=== PATIENT | female | born 1950 | race Caucasian/White ===

== ENCOUNTER 2018-11-20 15:28 | Inpatient (IN) | payer MEDICARE ==
[~2018-11-20 15:28] MED LIST: ISOVUE-370 76%-LOCM 1 ML ONE
[2018-11-20 16:10] LABS: #Basophils 0.1 thou/uL (0.0-0.2); #Eosinphils 0.1 thou/uL (0.0-0.7); #Lymphocytes 0.8 thou/uL (1.20-3.40); #Monocytes 1.1 thou/uL (0.11-0.59); #Neutrophils 7.8 thou/uL (1.40-6.50); %Eosinophils 0.7 % (0.0-10.0); %Monocytes 11.1 % (0.0-10.0); %Neutrophils 79.2 % (42.0-75.0); Hemoglobin 15.8 g/dL (12.0-16.0); Mean Corpuscular HGB CONC 33.3 g/dL (32.0-36.0); Mean Platelet Volume 6.1 fL (7.4-10.4); Platelet Count 376 thou/uL (130-400); RBC Distribution Width 12.8 % (11.5-14.5); Red Blood Cell (RBC) Count 4.79 mill/uL (4.20-5.40); White Blood Cell (WBC) Count 9.8 thou/uL (4.8-10.8)
--- NOTE | 2018-11-20 16:15 | CT ---
BRAIN CT WITHOUT IV CONTRAST: HISTORY: Stroke alert, altered mental status. FINDINGS: No focal mass or midline shift. No intra- or extraaxial hemorrhage. Sinuses and mastoids are clear of acute process. IMPRESSION: No significant acute intracranial process. No mass or bleed. Findings are discussed with Dr. Yo at 4:06 p.m. CODE CR POS: [facility]
[2018-11-20 16:16] LABS: INR-International Normal Ratio 0.8; Prothrombin Time 11.4 SEC (12.0-14.7)
[2018-11-20 16:24] LABS: PTT 22.7 SEC (22.9-36.1)
[2018-11-20 16:25] LABS: ALT (SGPT) 30 U/L (8-55); AST (SGOT) 18 U/L (5-34); Albumin 4.4 g/dL (3.4-4.8); Alkaline Phosphatase 97 U/L (40-150); Anion Gap 16 mmol/L (10-20); BUN (Urea Nitrogen) 15 mg/dL (9.8-20.1); Bilirubin, Total 0.4 mg/dL (0.2-1.2); CK (CPK) 61 U/L (29-168); Calc. Creatinine Clearance 0 mL/min (70-130); Calcium 10.1 mg/dL (7.8-10.44); Carbon Dioxide 25 mmol/L (23-31); Chloride 98 mmol/L (98-107); Estimated GFR-MDRD 77; Globulin 3.2 g/dL (2.4-3.5); Glucose 105 mg/dL (80-115); Potassium 3.6 mmol/L (3.5-5.1); Protein, Total 7.6 g/dL (6.0-8.3); Sodium 135 mmol/L (136-145)
--- NOTE | 2018-11-20 16:30 | CT ---
CTA OF THE HEAD UTILIZING IV CONTRAST AND 3D REFORMATTED IMAGING CTA OF THE NECK UTILIZING IV CONTRAST AND 3D REFORMATTED IMAGING 11/20/18 INDICATION: History of stroke alert. Altered mental status. COMPARISON: CT of the brain without contrast dated 11/20/18 performed at 4:03 p.m. FINDINGS: No hemodynamically significant stenosis, occlusion or aneurysmal formation is demonstrated. No area o f abnormal enhancement is seen within the brain. The septum pellucidum and third ventricle are midlin e. The skull and extracranial soft tissues appear within normal limits. No lymphadenopathy is grossly evident. The visualized aspects of the aerodigestive tract appear within normal limits. The upper me diastinum is within normal limits. No pathologically enlarged lymph nodes are grossly evident. There is a mildly prominent prevascular lymph node measuring 7 mm. A small amount of fluid is seen within t he superior pericardial recess. No definite acute osseous abnormality is evident. IMPRESSION: 1. No hemodynamically significant stenosis, occlusion or aneurysmal formation demonstrated. 2. Findings called to Dr. Yo at 4:20 p.m. on 11/20/18. Code CR POS: [facility]
[2018-11-20 16:57] LABS: CKMB 2.7 ng/mL (0-6.6)
[2018-11-20 17:11] LABS: Bilirubin Negative (Negative); Blood, Urine Negative (Negative); Clarity CLEAR (Clear); Glucose, Urine (Dipstick) Negative (Negative); Leukocyte Negative (Negative); Nitrite Negative (Negative); Protein, Urine (Dipstick) Negative (Neg-Trace); Urobilinogen 0.2 mg/dL (0.2-1.0)
[2018-11-20 17:25] LABS: Specific Gravity, Urine 1.054 (1.002-1.036)
[2018-11-20] MEDS ORDERED: Aspirin 81 mg Enteric Coated Tablet ONE (17:55)
[2018-11-20] MEDS ORDERED: Ondansetron ODT 4 MG TAB PO PRN (18:44)
[2018-11-20] MEDS ORDERED: Ondansetron PF 4 MG/2 ML Vial IVP PRN (18:44)
[2018-11-20] MEDS ORDERED: hydrALAZINE 20 MG/ML VIAL SLOW IVP PRN (18:44)
[2018-11-20] MEDS ORDERED: Acetaminophen 325 MG TAB PO PRN (18:44)
[2018-11-20] MEDS ORDERED: Labetalol HCl 100 MG/20 ML VIAL SLOW IVP PRN (18:44)
[2018-11-20] MEDS ORDERED: Lisinopril 2.5 MG TAB PO SCH (19:00)
[2018-11-20 19:20] LABS: Troponin I 0.656 ng/mL (< 0.028)
[2018-11-20] MEDS ORDERED: Ondansetron PF 4 MG/2 ML Vial ONE (21:09)
[2018-11-20 22:07] LABS: Troponin I 1.102 ng/mL (< 0.028)
[2018-11-20] MEDS ORDERED: TICAGRELOR 90 MG TABLET PO SCH (22:17)
[2018-11-20] MEDS: Enoxaparin Sodium 60 MG/0.6 ML SYRINGE SC SCH (23:00)
[2018-11-20] MEDS: Atorvastatin Calcium 40 MG TAB PO SCH (23:01)
[2018-11-20 23:52] VITALS: BMI 22.2
--- NOTE | 2018-11-21 01:26 | HP ---
PRIMARY CARE PHYSICIAN: Out of town physician in [place], [place]. CHIEF COMPLAINT: Altered mental status. HISTORY OF PRESENT ILLNESS: This is a pleasant 68-year-old female with past medical history of hyperlipidemia, however, not on any home medications at that time, reports to [facility] Emergency Department due to an altered mental status that started earlier today. She is in town for a family wedding, she is from [place]. She was noted by family to have acute confusion, not able to remember the groom's name. She was also having trouble packing her suitcase and having trouble answering questions per family. She had denied any headache, blurred vision, or dizziness. She had denied any chest pain, shortness of breath, or abdominal pain. She had denied any recent illness, numbness, or tingling. She had also denied any weakness, numbness, or tingling. During her initial workup, she was found to be hypertensive with a blood pressure of 179/118 with a pulse of 111, this was rechecked and found to be slightly improved to 155/104 with a pulse of 109. She underwent a brain CT, which showed no significant acute intracranial process, mass, or bleed. CTA head and neck showed no hemodynamically significant stenosis, occlusion, or aneurysm formation demonstrated. Her lab work showed slightly low sodium at 135 and troponin indeterminate at 0.073. Urinalysis was unremarkable, however, did show a specific gravity of 1.054. It was determined the patient be admitted under observation for stroke workup and possible cause of her acute encephalopathy. REVIEW OF SYSTEMS: All other systems reviewed and found to be negative unless mentioned in the HPI. PAST MEDICAL HISTORY: Hyperlipidemia. PAST SURGICAL HISTORY: Significant for breast implants and left knee surgery. PSYCHIATRIC HISTORY: None. SOCIAL HISTORY: Denies any alcohol, tobacco, or illicit drug use. KNOWN ALLERGIES: No known drug allergies. CURRENT HOME MEDICATIONS: None. PHYSICAL EXAMINATION: VITAL SIGNS: Blood pressure 155/104, pulse 109, respirations 16, temperature 98.4 degrees Fahrenheit, and O2 saturations 96% on room air. GENERAL: The patient is awake, alert, and oriented x2, in no acute distress noted. HEENT: Atraumatic and normocephalic. Pupils are round and reactive to light. Extraocular muscles are intact. Moist mucous membranes noted. Oropharynx is clear without exudates or erythema. NECK: Soft and supple. No JVD. Trachea midline. CARDIOVASCULAR: Positive S1 and S2. Regular rate and rhythm. No murmur auscultated. RESPIRATORY: Clear to auscultation bilaterally. No wheezes, rales, or rhonchi. ABDOMEN: Soft, nontender. Bowel sounds are present. No rebound. No rigidity. MUSCULOSKELETAL: Strength 5+ bilaterally in upper and lower extremities. No edema noted. Moves all extremities equal. NEUROLOGIC: Cranial nerves 2 through 12 grossly intact. No focal deficits noted. Speech intact and normal. Gait not assessed. SKIN: Warm, dry, and intact. No rashes, lesions, or ulcerations noted. PSYCHIATRIC: Good mood and affect. LABORATORY DATA: WBC 9.8, RBC 4.79, hemoglobin 15.8, platelet 376. Sodium 135, potassium 3.6, anion gap 16, BUN 15, creatinine 0.75, estimated GFR 77, glucose 105, calcium 10.1. AST 18, ALT 30. CK-MB 2.7. Troponin 0.0273. Urinalysis showed a specific gravity of 1.054, otherwise unremarkable. DIAGNOSTIC IMAGING STUDIES: CT brain without contrast showed no significant acute intracranial process, mass, or bleed. CTA head and neck showed no hemodynamically significant stenosis, occlusion, or aneurysm noted. ASSESSMENT AND PLAN: 1. Acute encephalopathy, unknown etiology at this time; however, this is likely secondary to elevated blood pressure. MRI ordered along with echocardiogram. She will be started on low-dose aspirin and statin therapy. Await further workup. 2. Hypertension. We will place the patient on low-dose SANTI inhibitor at this time. Monitor vital signs closely. Add IV hydralazine and IV labetalol as needed for elevated blood pressures with systolic blood pressure greater than 220. 3. History of hyperlipidemia. Check lipid panel in a.m. and place the patient on statin therapy. 4. Indeterminate troponin. First troponin found to be 0.073. Await second and third. Further workup pending, pending rechecks. If troponin is found to be trending up, we will place consult for Cardiology Services at that time. 5. Deep venous thrombosis and gastrointestinal prophylaxis. 6. Code status, full code. 7. Surrogate decision maker is her , Wolfgang Yost. DISPOSITION: Pending further workup and clinical findings. Job ID: [id number]
[2018-11-21 07:29] LABS: #Eosinphils 0.1 thou/uL (0.0-0.7); #Lymphocytes 0.7 thou/uL (1.20-3.40); #Monocytes 0.9 thou/uL (0.11-0.59); #Neutrophils 6.5 thou/uL (1.40-6.50); %Basophils 0.2 % (0.0-1.0); %Eosinophils 0.8 % (0.0-10.0); %Lymphocytes 8.9 % (21.0-51.0); %Monocytes 10.4 % (0.0-10.0); %Neutrophils 79.6 % (42.0-75.0); Hemoglobin 13.8 g/dL (12.0-16.0); Mean Corpuscular HGB CONC 33.8 g/dL (32.0-36.0); Mean Corpuscular Hemoglobin 32.8 pg (27.0-31.0); Mean Corpuscular Volume 96.8 fL (78.0-98.0); Mean Platelet Volume 6.2 fL (7.4-10.4); Platelet Count 298 thou/uL (130-400); RBC Distribution Width 12.5 % (11.5-14.5); Red Blood Cell (RBC) Count 4.23 mill/uL (4.20-5.40); White Blood Cell (WBC) Count 8.2 thou/uL (4.8-10.8)
[2018-11-21 07:48] LABS: Anion Gap 11 mmol/L (10-20); BUN (Urea Nitrogen) 13 mg/dL (9.8-20.1); Calc. Creatinine Clearance 81 mL/min (70-130); Calcium 8.4 mg/dL (7.8-10.44); Carbon Dioxide 23 mmol/L (23-31); Cardiac Risk 3.9 (Less than 4.5); Chloride 98 mmol/L (98-107); Cholesterol 258 mg/dl (< 200 Desired); Estimated GFR-MDRD Greater than 90; Glucose 110 mg/dL (80-115); HDL Cholesterol 67 mg/dL (>60 Neg Risk); LDL Cholesterol, Calculated 155 mg/dL; Potassium 3.5 mmol/L (3.5-5.1); Sodium 128 mmol/L (136-145); Triglycerides 178 mg/dL (Less than 150)
[2018-11-21] MEDS ORDERED: Enoxaparin Sodium 40 MG/0.4 ML SYRINGE SC SCH (09:00)
[2018-11-21] MEDS ORDERED: TICAGRELOR 90 MG TABLET PO SCH (09:00)
[2018-11-21] MEDS ORDERED: ALENDRONATE SODIUM 5 MG PO SCH (09:00)
[2018-11-21] MEDS ORDERED: Prevnar 13-Val Conj/PF 0.5 ML SYRINGE IM ONE ×2 (09:00→11:00)
[2018-11-21] MEDS: Aspirin 81 mg Enteric Coated Tablet PO SCH (10:18)
[2018-11-21] MEDS: Lisinopril 2.5 MG TAB PO SCH (10:20)
[2018-11-21] MEDS: Enoxaparin Sodium 60 MG/0.6 ML SYRINGE SC SCH ×2 (10:22→11:50)
[2018-11-21 10:53] LABS: Critical Call Chem Troponin I RESULT DECREASING; Troponin I 0.584 ng/mL (< 0.028)
--- NOTE | 2018-11-21 10:59 | MRI ---
MRI BRAIN WITHOUT CONTRAST: HISTORY: TIA. Altered mental status. COMPARISON: Exam from the previous day. FINDINGS: No restricted diffusion is seen. No evidence of infarct, hemorrhage, midline shift, or abnormal extr aaxial fluid collections are noted. Multiple foci of T2 prolongation in the periventricular white ma tter are consistent with chronic small vessel ischemic disease. The ventricular size is appropriate, and the basilar cisterns are patent. The visualized paranasal sinuses and mastoid air cells are wel l aerated. IMPRESSION: No evidence of acute intracranial process. POS: C
[2018-11-21] MEDS ORDERED: Iopamidol 370 76% 50 ML VIAL FS ONE (11:21)
[2018-11-21] MEDS ORDERED: Iopamidol 370 76% 100 ML VIAL ONE (11:21)
[2018-11-21] MEDS ORDERED: Communication Order-Pharmacy FS SCH (11:45)
--- NOTE | 2018-11-21 13:03 | CON ---
DATE OF CONSULTATION: 11/21/2018 INDICATION FOR CONSULTATION: A 68-year-old female with mental status changes and abnormal cardiac enzymes. HISTORY OF PRESENT ILLNESS: This very pleasant 68-year-old female was visiting from [place]. Her stepdaughter is getting . She is from [place]. She has had no previous cardiac history, but she became very confused and the family brought her to the emergency room. CT of the brain does not show any significant abnormalities. She did have an echocardiogram today which shows ejection fraction of 20% to 25%. The anterior wall septum and apex appeared to be akinetic. She did have trace mitral and tricuspid valve regurgitation. She has had no previous cardiac history that she is aware of. She is able to exercise. She has had the cardiac enzymes continue to creep upwards slightly. She is asymptomatic. It peaked at 1.1. The troponin I when she arrived, it was 0.073, increased up to 1.1, is now decreased back down to 0.58. She does have hypercholesterolemia. LDL level is 155. She does not have any significant other past medical history. She denies any significant hypertension. She exercises without symptoms. PAST MEDICAL HISTORY: Significant for just hyperlipidemia. She has had breast implants and knee surgery. SOCIAL HISTORY: There is no history of alcohol or tobacco abuse. She is . ALLERGIES: NONE. PRESENT MEDICATIONS: Include medications for cholesterol, osteoporosis, and vitamins. REVIEW OF SYSTEMS: A 12-point review of systems is unremarkable except what was noted in the history of present illness. PHYSICAL EXAMINATION: GENERAL: Reveals a well-developed, well-nourished female, who is in no acute distress. She is alert and oriented. VITAL SIGNS: Her vital signs are stable. Her blood pressure is 106/68. She is afebrile. Her heart rate is in the 80s and shows a sinus rhythm, respiratory rate about 16, O2 saturation 96%. HEENT: Shows head to be normocephalic and atraumatic. Carotid pulses are present. I did not hear any bruits. CHEST: Clear to auscultation without any rales, rhonchi, or wheezing. CARDIOVASCULAR: Reveals a regular rate and rhythm. Normal S1, S2. There is no S3 or S4. I cannot hear any significant murmurs, heaves, thrills, bruits, or rubs. ABDOMINAL: Soft and nontender. Positive bowel sounds are present. EXTREMITIES: Show no clubbing, cyanosis, or edema. Pedal pulses are present. Radial pulses present. NEUROLOGIC: The patient appears to be intact without any gross focal motor deficits noted at this time. Her mentation appears to be back to normal. LABORATORY DATA: Her laboratory data is abnormal for the cardiac enzymes as mentioned above. Her creatinine is 0.75. No evidence of urinary tract infections. Hemoglobin 15.8. CT scan was unremarkable. Echocardiogram shows severe decrease in left ventricular systolic function. At this time, I explained to her since she does not have any indication of having any previous cardiac history, it would most likely be prudent to evaluate her coronary status at this time since she does have an EKG which is abnormal. 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 She has an incomplete left bundle branch block, but there is decreased R-wave progression in V1 through V4 with minimal R-waves. No ST-segment elevation was noted. IMPRESSION: 1. Cardiomyopathy of uncertain etiology, but may be due to old anterior myocardial infarction, which was undiagnosed and may have been a silent myocardial infarction. We will schedule her for cardiac catheterization. We will have further discussion depending on the results of the cardiac catheterization. She also would become a candidate for a LifeVest or an AICD implant. 2. Hypercholesterolemia. She has been placed on atorvastatin and would continue this. She also was given a dose of Lovenox last evening. 3. Mental status changes of uncertain etiology, it may be due to hypoperfusion due to decreasing cardiac output or she may have had small emboli due to the also the decrease in ejection fraction. After the cardiac catheterization is completed, if there is no significant intervention needs to be undertaken, it may not be a bad idea to place the patient on some type of anticoagulation due to the decrease in left ventricular systolic function. Further recommendations will depend on the results of the cardiac catheterization. I did explain to her the procedure, the risks to include bleeding, infection, possible myocardial infarction, CVA, renal insufficiency, allergic contrast reaction, and even the possibility of . She understands and agrees to proceed. We will plan for cardiac catheterization later today. Job ID: [id number]
[2018-11-21] MEDS ORDERED: Verapamil 5 MG/2 ML VIAL ONE (13:31)
[2018-11-21] MEDS ORDERED: Heparin 10,000 UNITS/1 ML VIAL ONE (13:31)
[2018-11-21] MEDS ORDERED: Nitroglycerin 100MG/250ML BOT 250 ML ONE (13:31)
--- NOTE | 2018-11-21 14:14 | PDOC.PN ---
- Subjective Encounter Start Date: 11/21/18 Encounter Start Time: 14:12 (late entry) Subjective: feels better.no more grogginess -: no chest pain or SOB -: significant FH of CAD in Dad's side. Mom had stroke - Objective Resuscitation Status - Order Detail: 11/20/18 18:44 Resuscitation Status Routine Co-Sign Provider: Resuscitation Status: FULL: Full Resuscitation MAR Reviewed: Yes Vital Signs & Weight: Vital Signs (12 hours) Temp Pulse Resp BP Pulse Ox 11/21/18 11:39 97.8 F 84 16 118/83 98 11/21/18 10:20 81 11/21/18 07:45 98.5 F 81 16 106/68 96 11/21/18 04:00 98.4 F 87 18 109/75 96 Weight Weight 117 lb 14.4 oz I&O: 11/20/18 11/21/18 11/22/18 06:59 06:59 06:59 Intake Total 520 Balance 520 Result Diagrams: 11/21/18 07:03 11/21/18 07:03 Additional Labs: Accuchecks 11/20/18 15:43 POC Glucose 110 Laboratory Tests 11/20/18 11/20/18 11/20/18 15:45 18:41 21:29 Troponin I 0.073 H 0.656 H* 1.102 H* Triglycerides Cholesterol LDL Cholesterol, Calc HDL Cholesterol 11/21/18 11/21/18 07:03 10:14 Troponin I 0.584 H* Triglycerides 178 H Cholesterol 258 H LDL Cholesterol, Calc 155 HDL Cholesterol 67 Phys Exam - Physical Examination Constitutional: NAD HEENT: PERRLA, moist MMs, sclera anicteric, oral pharynx no lesions Neck: no nodes, no JVD, supple, full ROM Respiratory: no wheezing, no rales, no rhonchi, clear to auscultation bilateral Cardiovascular: RRR, no significant murmur Gastrointestinal: soft, non-tender, no distention, positive bowel sounds Musculoskeletal: no edema, pulses present Neurological: non-focal, normal sensation, moves all 4 limbs Psychiatric: normal affect, A&O x 3 Skin: no rash Dx/Plan (1) NSTEMI (non-ST elevated myocardial infarction) Code(s): I21.4 - NON-ST ELEVATION (NSTEMI) MYOCARDIAL INFARCTION Status: Acute (2) Hyperlipidemia Code(s): E78.5 - HYPERLIPIDEMIA, UNSPECIFIED Status: Acute (3) HTN (hypertension) Code(s): I10 - ESSENTIAL (PRIMARY) HYPERTENSION Status: Acute - Plan DVT proph w/SCDs cardiac Cath today. -: MRI brain to r/o stroke is negative at this time -: cont ASA,Lovenox,statin,SANTI-I.1 dose Brillinta given last night -: HD stable.add BB if BP stable * . Review of Systems - Review of Systems Constitutional: weakness. negative: fever, chills, sweats, malaise, other ENT: negative: Ear Pain, Ear Discharge, Nose Pain, Nose Discharge, Nose Congestion, Mouth Pain, Mouth Swelling, Throat Pain, Throat Swelling, Other Respiratory: negative: Cough, Dry, Shortness of Breath, Hemoptysis, SOB with Excertion, Pleuritic Pain, Sputum, Wheezing Cardiovascular: negative: chest pain, palpitations, orthopnea, paroxysmal nocturnal dyspnea, edema, light headedness, other Gastrointestinal: negative: Nausea, Vomiting, Abdominal Pain, Diarrhea, Constipation, Melena, Hematochezia, Other Genitourinary: negative: Dysuria, Frequency, Incontinence, Hematuria, Retention , Other Musculoskeletal: negative: Neck Pain, Shoulder Pain, Arm Pain, Back Pain, Hand Pain, Leg Pain, Foot Pain, Other Neurological: negative: Weakness, Numbness, Incoordination, Change in Speech, Confusion, Seizures, Other - Medications/Allergies Allergies/Adverse Reactions: Allergies Allergy/AdvReac Type Severity Reaction Status Date / Time No Known Drug Allergies Allergy Verified 11/20/18 23:19 Medications: Current Medications Acetaminophen (Tylenol) 650 mg PO Q4H PRN PRN Reason: Headache/Fever/Mild Pain (1-3) Last Admin: 11/21/18 02:06 Dose: 650 mg Aspirin (Ecotrin) 81 mg PO DAILY [facility] Last Admin: 11/21/18 10:18 Dose: 81 mg Atorvastatin Calcium (Lipitor) 40 mg PO HS [facility] Last Admin: 11/20/18 23:01 Dose: 40 mg Hydralazine HCl (Apresoline) 10 mg SLOW IVP Q4H PRN PRN Reason: BP > 220/110 Labetalol HCl (Normodyne) 20 mg SLOW IVP Q1H PRN PRN Reason: BP > 220/110 Lisinopril (Zestril) 2.5 mg PO DAILY [facility] Last Admin: 11/21/18 10:20 Dose: Not Given Miscellaneous Information (Communication Order-Pharmacy) 0 each FS ONE [facility] Stop: 11/21/18 23:59 Ondansetron HCl (Zofran Odt) 4 mg PO Q6H PRN PRN Reason: Nausea/Vomiting Ondansetron HCl (Zofran) 4 mg IVP Q6H PRN PRN Reason: Nausea/Vomiting Last Admin: 11/20/18 21:09 Dose: 4 mg Sodium Chloride (Flush - Normal Saline) 10 ml IVF PRN PRN PRN Reason: Saline Flush
[2018-11-21] MEDS ORDERED: DOPamine 400 MG/D5W 250 ML 250 ML ONE (14:34)
[2018-11-21] MEDS ORDERED: Nitroglycerin 0.4 MG TAB (25 Tab Bottle) SL PRN (15:25)
[2018-11-21] MEDS ORDERED: Sodium Chloride 0.9% 200 ML IV PRN (15:25)
[2018-11-21] MEDS ORDERED: Acetaminophen/Codeine 30-300mg Tablet PO PRN ×2 (15:25)
[2018-11-21 17:22] LABS: Anion Gap 13 mmol/L (10-20); BUN (Urea Nitrogen) 11 mg/dL (9.8-20.1); Calc. Creatinine Clearance 71 mL/min (70-130); Calcium 8.2 mg/dL (7.8-10.44); Carbon Dioxide 22 mmol/L (23-31); Chloride 100 mmol/L (98-107); Estimated GFR-MDRD Greater than 90; Glucose 126 mg/dL (80-115); Potassium 3.4 mmol/L (3.5-5.1); Sodium 132 mmol/L (136-145)
[2018-11-21] MEDS: Potassium Chloride 20 MEQ TAB PO SCH (20:18)
[2018-11-21] MEDS: Atorvastatin Calcium 40 MG TAB PO SCH (20:18)
--- NOTE | 2018-11-22 01:27 | CON ---
DATE OF CONSULTATION: 11/21/2018 CONSULTING PHYSICIAN: Dr. Cloud. REASON FOR CONSULTATION: Hyponatremia. REASON FOR ADMISSION: Altered mentation. HISTORY OF PRESENT ILLNESS: A 68-year-old female with history of hyperlipidemia, who came to the hospital with altered mentation and was found to have low sodium. She had a sodium of 135 on admission and dropped to 128. No fever or chills. No nausea or vomiting. She has been drinking fluid. PAST MEDICAL HISTORY: Positive for hyperlipidemia. PAST SURGICAL HISTORY: Breast implants and left knee surgery. HOME MEDICATIONS: Reviewed. ALLERGIES: NO KNOWN DRUG ALLERGIES. SOCIAL HISTORY: No smoking, alcohol, or illicit drugs. FAMILY HISTORY: No history of any kidney disease. REVIEW OF SYSTEMS: CONSTITUTIONAL: Negative for weight loss or gain, ability to conduct usual activities. SKIN: Negative for rash, itching. EYES: Negative for double vision, pain. ENT/MOUTH: Negative for nose bleeding, neck stiffness, pain, tenderness. CARDIOVASCULAR: Negative for palpitations, dyspnea on exertion, orthopnea. RESPIRATORY: Negative for shortness of breath, wheezing, cough, hemoptysis, fever or night sweats. GASTROINTESTINAL: Negative for poor appetite, abdominal pain, heartburn, nausea, vomiting, constipation, or diarrhea. GENITOURINARY: Negative for urgency, frequency, dysuria, nocturia. MUSCULOSKELETAL: Negative for pain, swelling. NEUROLOGIC/PSYCHIATRIC: Negative for anxiety, depression. ALLERGY/IMMUNOLOGIC: Negative for skin rash, bleeding tendency. PHYSICAL EXAMINATION: GENERAL: Reveals a well-build female, in no apparent distress. VITAL SIGNS: Temperature 97.8, pulse 84, respiratory rate 18, and blood pressure 118/83. HEENT: Atraumatic and normocephalic. Oral mucosa is moist. NECK: Supple. CVS: S1 and S2 heard. Regular rate and rhythm. RESPIRATORY: Clear. GI: Abdomen is soft. MUSCULOSKELETAL: 1+ edema. DERMATOLOGIC: No skin rash. NEUROLOGIC: Alert and awake. PSYCHIATRIC: Normal mood and affect LABORATORY DATA: Potassium is 3.4, BUN is 11, and creatinine is 0.6. ASSESSMENT AND PLAN: 1. Hyponatremia. Sodium level is better. Limit fluid intake. 2. Hypokalemia. Replace and monitor. 3. Edema, controlled. 4. Hypertension, stable. 5. We will continue to monitor. Job ID: [id number]
[2018-11-22 06:28] LABS: Anion Gap 12 mmol/L (10-20); BUN (Urea Nitrogen) 10 mg/dL (9.8-20.1); Calc. Creatinine Clearance 74 mL/min (70-130); Calcium 8.8 mg/dL (7.8-10.44); Carbon Dioxide 23 mmol/L (23-31); Chloride 105 mmol/L (98-107); Estimated GFR-MDRD Greater than 90; Glucose 112 mg/dL (80-115); Potassium 4.2 mmol/L (3.5-5.1); Sodium 136 mmol/L (136-145)
[2018-11-22] MEDS: Aspirin 81 mg Enteric Coated Tablet PO SCH (09:26)
[2018-11-22] MEDS: Lisinopril 2.5 MG TAB PO SCH (09:26)
[2018-11-22] MEDS: Carvedilol 3.125 MG TAB PO SCH ×2 (09:26→17:08)
--- NOTE | 2018-11-22 11:35 | PDOC.CTH ---
Cardiology Progress Note - Subjective The pt seen and examined. No cardiac complaints. No overnight events. - Objective Vital Signs Temp Pulse Resp BP BP Pulse Ox 11/22/18 09:26 84 117/73 11/22/18 07:39 98.1 F 84 16 117/73 96 11/22/18 04:00 97.7 F 83 16 109/74 99 11/22/18 03:29 97 11/22/18 00:00 97.8 F 75 16 113/72 97 Weight 117 lb 4.8 oz 11/21/18 11/22/18 11/23/18 06:59 06:59 06:59 Intake Total 520 410 300 Balance 520 410 300 - Labs Result Diagrams: 11/21/18 07:03 11/22/18 05:53 Troponin/CKMB CK-MB (CK-2) 2.7 ng/mL (0-6.6) 11/20/18 15:45 Troponin I 0.584 ng/mL (< 0.028) H* 11/21/18 10:14 - Assessment/Plan 1. Acute on Chronic Systolic HF with EF 25-30% - Normal Coronary arteries; Waiting for LifeVest; On Bblocker, SANTI, and diuretic 2. NSTEMI 2/2 demand ischemia 2/2 Acute on Chronic systolic HF - S/p [facility] on with normal Coronary arteries. 3. AMS possible 2/2 low perfusion due to low EF vs embolism - improved; will start Eliquis 5mg BID and ASA 81mg qd. 4. Hyperlipidemia - On Statin MAR reviewed * Echo on 11/21/2018 showed EF 25-30%, anterior septal and apical akinesis, mild MR and TR. * From Cardiac standpoint, the pt is stable to d/c home when she receives LifeVest. * The pt will f/u with her tram operator in [facility]. Pt. seen and eval. by me. I agree with the A/P by the HEEL SORTER. chest clear. RRR. If this is [place] she may recover. .
[2018-11-22] MEDS ORDERED: Apixaban 5 MG TAB PO SCH ×2 (12:30→13:15)
--- NOTE | 2018-11-22 12:55 | PDOC.PN ---
- Subjective Encounter Start Date: 11/22/18 Encounter Start Time: 12:54 Subjective: feels good,no chest pain or SOB -: daughter at bedside and diagnosis and care plan discussed in detail - Objective Resuscitation Status - Order Detail: 11/20/18 18:44 Resuscitation Status Routine Co-Sign Provider: Resuscitation Status: FULL: Full Resuscitation MAR Reviewed: Yes Vital Signs & Weight: Vital Signs (12 hours) Temp Pulse Pulse Pulse Pulse Resp BP 11/22/18 11:55 97 120 H 145 H 11/22/18 11:35 98 F 87 16 11/22/18 09:26 84 117/73 11/22/18 07:39 98.1 F 84 16 11/22/18 04:00 97.7 F 83 16 11/22/18 03:29 BP BP BP Pulse Ox 11/22/18 11:55 108/70 118/76 11/22/18 11:35 101/59 L 96 11/22/18 09:26 11/22/18 07:39 117/73 96 11/22/18 04:00 109/74 99 11/22/18 03:29 97 Weight Weight 117 lb 4.8 oz I&O: 11/21/18 11/22/18 11/23/18 06:59 06:59 06:59 Intake Total 520 410 300 Balance 520 410 300 Result Diagrams: 11/21/18 07:03 11/22/18 05:53 Radiology Reviewed by me: Yes (EF 25-30%) Phys Exam - Physical Examination Constitutional: NAD HEENT: PERRLA, moist MMs, sclera anicteric, oral pharynx no lesions Neck: no nodes, no JVD, supple, full ROM Respiratory: no wheezing, no rales, no rhonchi, clear to auscultation bilateral Cardiovascular: RRR, no significant murmur, no rub Gastrointestinal: soft, non-tender, no distention, positive bowel sounds Musculoskeletal: no edema, pulses present Neurological: non-focal, normal sensation, moves all 4 limbs Psychiatric: normal affect, A&O x 3 Skin: no rash Dx/Plan (1) NSTEMI (non-ST elevated myocardial infarction) Code(s): I21.4 - NON-ST ELEVATION (NSTEMI) MYOCARDIAL INFARCTION Status: Acute (2) Hyperlipidemia Code(s): E78.5 - HYPERLIPIDEMIA, UNSPECIFIED Status: Chronic (3) HTN (hypertension) Code(s): I10 - ESSENTIAL (PRIMARY) HYPERTENSION Status: Chronic (4) Non-ischemic cardiomyopathy Code(s): I42.8 - OTHER CARDIOMYOPATHIES Status: Acute Comment: Etiology unclear - Plan plan discussed w/ family, DVT proph w/SCDs cath NL. no clear etiology for low EF.No h/o drug/ETOH abuse. -: no recent stress.no evidence of takotsubo on ECHO -: add BB,SANTI-I,aldactone & monitor for side effects ON -: DC likely tomorrow if BP stays WNL & LifeVest fitted -: pt & family educated importance of follow up * . Review of Systems - Review of Systems Constitutional: negative: fever, chills, sweats, weakness, malaise, other ENT: negative: Ear Pain, Ear Discharge, Nose Pain, Nose Discharge, Nose Congestion, Mouth Pain, Mouth Swelling, Throat Pain, Throat Swelling, Other Respiratory: negative: Cough, Dry, Shortness of Breath, Hemoptysis, SOB with Excertion, Pleuritic Pain, Sputum, Wheezing Cardiovascular: negative: chest pain, palpitations, orthopnea, paroxysmal nocturnal dyspnea, edema, light headedness, other Gastrointestinal: negative: Nausea, Vomiting, Abdominal Pain, Diarrhea, Constipation, Melena, Hematochezia, Other Genitourinary: negative: Dysuria, Frequency, Incontinence, Hematuria, Retention , Other Musculoskeletal: negative: Neck Pain, Shoulder Pain, Arm Pain, Back Pain, Hand Pain, Leg Pain, Foot Pain, Other Neurological: negative: Weakness, Numbness, Incoordination, Change in Speech, Confusion, Seizures, Other - Medications/Allergies Allergies/Adverse Reactions: Allergies Allergy/AdvReac Type Severity Reaction Status Date / Time No Known Drug Allergies Allergy Verified 11/20/18 23:19 Medications: Current Medications Acetaminophen (Tylenol) 650 mg PO Q4H PRN PRN Reason: Headache/Fever/Mild Pain (1-3) Last Admin: 11/21/18 02:06 Dose: 650 mg Acetaminophen/Codeine Phosphate (Tylenol #3) 1 tab PO Q4H PRN PRN Reason: Mild Pain (1-3) Acetaminophen/Codeine Phosphate (Tylenol #3) 2 tab PO Q4H PRN PRN Reason: Moderate Pain (4-6) Apixaban (Eliquis) 5 mg PO BID [facility] Aspirin (Ecotrin) 81 mg PO DAILY [facility] Last Admin: 11/22/18 09:26 Dose: 81 mg Atorvastatin Calcium (Lipitor) 40 mg PO HS [facility] Last Admin: 11/21/18 20:18 Dose: 40 mg Carvedilol (Coreg) 3.125 mg PO BID[facility] Last Admin: 11/22/18 09:26 Dose: 3.125 mg Hydralazine HCl (Apresoline) 10 mg SLOW IVP Q4H PRN PRN Reason: BP > 220/110 Sodium Chloride (Normal Saline 0.9%) 200 mls @ 0 mls/hr IV ONE PRN PRN Reason: SBP < 90 Stop: 11/24/18 15:26 Labetalol HCl (Normodyne) 20 mg SLOW IVP Q1H PRN PRN Reason: BP > 220/110 Lisinopril (Zestril) 2.5 mg PO DAILY [facility] Last Admin: 11/22/18 09:26 Dose: 2.5 mg Nitroglycerin (Nitrostat) 0.4 mg SL Q5MIN PRN PRN Reason: Chest Pain Ondansetron HCl (Zofran Odt) 4 mg PO Q6H PRN PRN Reason: Nausea/Vomiting Ondansetron HCl (Zofran) 4 mg IVP Q6H PRN PRN Reason: Nausea/Vomiting Last Admin: 11/20/18 21:09 Dose: 4 mg Potassium Chloride (K-Dur) 40 meq PO NOW [facility] Stop: 11/22/18 18:46 Last Admin: 11/21/18 20:18 Dose: 40 meq Sodium Chloride (Flush - Normal Saline) 10 ml IVF PRN PRN PRN Reason: Saline Flush Spironolactone (Aldactone) 12.5 mg PO 1200 [facility]
[2018-11-22] MEDS: Spironolactone 25 MG TAB PO SCH (13:11)
[2018-11-22] MEDS: Potassium Chloride 20 MEQ TAB PO SCH (17:07)
[2018-11-22] MEDS: Atorvastatin Calcium 40 MG TAB PO SCH (20:03)
[2018-11-22] MEDS: Apixaban 5 MG TAB PO SCH (20:03)
[2018-11-23 07:41] VITALS: TEMP 98.4
[2018-11-23] MEDS: Carvedilol 3.125 MG TAB PO SCH (09:36)
[2018-11-23] MEDS: Aspirin 81 mg Enteric Coated Tablet PO SCH (09:36)
[2018-11-23] MEDS: Apixaban 5 MG TAB PO SCH (09:36)
[2018-11-23] MEDS: Lisinopril 2.5 MG TAB PO SCH (09:36)
[2018-11-23 09:44] VITALS: BP 132/78
--- NOTE | 2018-11-23 10:37 | PDOC.CTH ---
Cardiology Progress Note - Subjective The pt seen and examined. No overnight events. No cardiac complaints. However , her HR went up to 130s with Cardiac rehab this AM. - Objective Vital Signs Temp Pulse Pulse Pulse Pulse Resp BP 11/23/18 09:41 130 H 119 H 110 H 11/23/18 09:36 76 117/72 11/23/18 07:40 98.4 F 76 16 11/23/18 04:56 11/23/18 03:03 98.3 F 80 20 11/22/18 23:34 98.3 F 77 16 BP BP BP Pulse Ox 11/23/18 09:41 132/78 130/79 11/23/18 09:36 11/23/18 07:40 117/72 95 11/23/18 04:56 96 11/23/18 03:03 124/82 96 11/22/18 23:34 118/70 97 Weight 117 lb 14.4 oz 11/22/18 11/23/18 11/24/18 06:59 06:59 06:59 Intake Total 410 1510 300 Balance 410 1510 300 - Physical Examination General/Neuro: alert & oriented x3 Neck: no JVD present Lungs: CTA Heart: RRR Abdomen: soft Extremities: other: (No edema) - Telemetry Telemetry Rhythm: SR - Labs Result Diagrams: 11/21/18 07:03 11/22/18 05:53 Troponin/CKMB CK-MB (CK-2) 2.7 ng/mL (0-6.6) 11/20/18 15:45 Troponin I 0.584 ng/mL (< 0.028) H* 11/21/18 10:14 - Assessment/Plan 1. Acute on Chronic Systolic HF with EF 25-30% possible Takotsubo?- Normal Coronary arteries; Wearing LifeVest now; On Bblocker, SANTI, and diuretic 2. NSTEMI 2/2 demand ischemia 2/2 Acute on Chronic systolic HF - S/p C on with normal Coronary arteries. 3. AMS possible 2/2 low perfusion due to low EF vs embolism - improved; will start Eliquis 5mg BID and ASA 81mg qd. 4. Hyperlipidemia - On Statin 5. Tachycardia - Increase Coreg from 3.125mg to 6.25mg BID. MAR reviewed * Echo on 11/21/2018 showed EF 25-30%, anterior septal and apical akinesis, mild MR and TR. * From Cardiac standpoint, the pt is stable to d/c home when she receives LifeVest. * The pt will f/u with her turning sander tender in [facility]. Review of Systems - Review of Systems Constitutional: reports: no symptoms reported EENTM: reports: no symptoms reported Respiratory: reports: no symptoms reported Cardiac (ROS): reports: no symptoms reported ABD/GI: reports: no symptoms reported : reports: no symptoms reported Musculoskeletal: reports: no symptoms reported Skin: reports: no symptoms reported
[2018-11-23] MEDS: Spironolactone 25 MG TAB PO SCH (11:15)
[2018-11-23] MEDS ORDERED: Carvedilol 3.125 MG TAB PO SCH (11:30)
[2018-11-23] MEDS ORDERED: Carvedilol 6.25 MG TAB PO SCH (17:00)
--- NOTE | 2018-11-24 00:24 | DIS ---
DATE OF ADMISSION: 11/20/2018 DATE OF DISCHARGE: 11/23/2018 CONDITION: At the time of discharge, stable and improved. DISCHARGE DISPOSITION: Home. PRIMARY CARE PHYSICIAN: Out of town in [place], [place]. IN-HOUSE CONSULTATION: Cardiology, Dr. Khalil. PROCEDURES DONE IN HOSPITAL: 1. CT scan of the brain upon presentation, which shows no acute intracranial abnormalities. 2. MRI of the brain which is also negative for any evidence of acute infarction, mass-effect, or hemorrhage. 3. CT angio of the [place] of [place], which shows no hemodynamically significant stenosis. 4. Neck CT angio is also unremarkable and within normal limits. 5. Transthoracic echocardiogram which shows EF of 25% to 30% with anteroseptal and apical akinesis, otherwise unremarkable. 6. Cardiac catheterization by Dr. Khalil which shows patent normal coronary arteries. DISCHARGE DIAGNOSES: 1. Non ST elevation myocardial infarction. 2. Dyslipidemia. 3. Hypertension. 4. Nonischemic cardiomyopathy. DISCHARGE MEDICATIONS: 1. Atorvastatin 40 mg daily. 2. Alendronate mg p.o. every 7 days. New medications, 1. Aldactone 12.5 mg daily. 2. Lisinopril 2.5 mg daily. 3. Carvedilol 3.125 mg p.o. b.i.d. 4. Aspirin 81 mg daily. 5. Eliquis 5 mg p.o. b.i.d. HISTORY OF PRESENTING ILLNESS: Ms. Yost is a very pleasant 68-year-old female who is visiting from [place], [place] to attend a wedding locally, who was found to have confusion and difficulty remembering things and was brought to the emergency room for complaints of altered mental status. She was found to be hypertensive with a blood pressure 179/118 and a pulse of 111 in the ER. In the emergency room, a CT scan of the brain and CT angio of the head and neck were done. Both of them were rather within normal limits. She was found to have indeterminate range troponin of 0.073. Urinalysis was negative for any evidence of UTI. She was admitted to stroke floor with a presumptive diagnosis of acute encephalopathy for further workup. Please see admission history and physical dictated by MORRIS Vasques on 11/20/2018. HOSPITAL COURSE: The patient underwent MRI of the brain which was unremarkable. Echocardiogram was also done as part of the stroke workup and also because of her non-ST elevation ID. Her cardiac enzymes started to trend upwards and high she had was 1.102. She was treated with aspirin and atorvastatin in the hospital and Cardiology was consulted. Dr. Khalil saw the patient and her echocardiogram results show significant reduction in EF of 25% to 30%. Because of this, she was taken to the cardiac screedman/laborer and was surprisingly found to have normal coronaries. At this time, she seems to have some sort of non-ischemic cardiomyopathy, but of unclear etiology. She was started on appropriate cardiac prudent medications including aspirin, statin, beta jody, SANTI inhibitor, and Aldactone. She was fitted with the Life Vest as well prior to discharge. Please note that she has been started on Eliquis 5 [address]o. b.i.d. by Dr. Khalil for possible embolic event. Please note that the MRI was negative. I have encouraged them to further discuss this with the own utility inspector. The patient is to see her own primary care physician with Cardiology referral as soon as possible. She is cleared by Cardiology for discharge and is being discharged under the care of her daughter. Otherwise, the patient is fairly independent with her ADLs and IADLs. She actually looks much younger than her own daughter. She was seen and examined prior to discharge. Her physical examination is within normal limit. Vital signs are stable. Heart rate anywhere from 76 to 110 with physical activity. Blood pressure 130/79. No acute distress. Awake, alert, and oriented x3. Chest is clear to auscultation without any wheezing, rales, or rhonchi. DISCHARGE PLAN: Discharge plan was discussed with the patient and her daughter at bedside and they verbalized understanding. TIME SPENT: Total time spent in the discharge, 35 minutes. Job ID: [id number]
--- NOTE | 2018-11-24 09:39 | PRG ---
DATE OF SERVICE: 11/22/2018 SUBJECTIVE: Patient was seen and examined at bedside and overnight events noted. Patient denies any shortness of breath or chest pain or palpitation. No history of nausea or vomiting or diarrhea or fever or chills or cramps. OBJECTIVE: GENERAL: This is a well-built female, in no apparent distress. VITAL SIGNS: Temperature 98, respiratory rate 16, pulse 87. Respiratory rate 18. Blood pressure 101/59. HEENT: Atraumatic, normocephalic. Oral mucosa is moist. NECK: Supple. CARDIOVASCULAR: S1, S2 heard. Rate and rhythm regular. RESPIRATORY: Clear to auscultation. GASTROINTESTINAL: Abdomen is soft. MUSCULOSKELETAL: No tenderness. No edema. DERMATOLOGIC: No skin rash. NEUROLOGIC: Alert and awake and oriented x3. No focal neurologic deficits. Moving all the extremities. PSYCHIATRIC: Mood and affect normal. LABORATORY DATA: Potassium is 4.2, BUN 10, creatinine 0.62. ASSESSMENT AND PLAN: 1. Hyponatremia, much better. 2. Cardiorenal syndrome. 3. Hypokalemia. 4. Hypertension, stable. 5. Edema. Limit fluid intake. Advised to limit fluid intake, consult on cardiorenal syndrome. We will follow. Job ID: [id number]
--- NOTE | 2018-11-24 18:23 | PQF ---
FRANCISCO COLLINS RICHA MD [id number] CLINICAL DOCUMENTATION IMPROVEMENT CLARIFICATION FORM: ICD-10 Updated PLEASE DO AN ADDENDUM TO THE PROGRESS NOTE WITH ANY DOCUMENTATION UPDATES OR ADDITIONS AND CARRY THROUGH TO DC SUMMARY. THANK YOU. DATE: 11-24-18 ATTN: DR. BROOKE Please exercise your independent, professional judgment in responding to the clarification form. Clinical indicators are provided on the bottom of this form for your review Please check appropriate box(s): [X ] Acute Metabolic Encephalopathy [ ] Acute Hypertensive Encephalopathy [ ] Alteration of Awareness [ ] Other diagnosis [ ] Unable to determine For continuity of documentation, please document condition throughout progress notes and discharge summary. Thank You. CLINICAL INDICATORS - SIGNS / SYMPTOMS / LABS 11-20 ED: Sudden onset memory loss - AMS ED BP 179/118; 155/104; 148/101; 136/96 3 H&P (NERIS): ACUTE ENCEPHALOPATHY - UNKNOWN ETIOLOGY - LIKELY D/T ELEVATED BP - HTN 11-21 @ 0703 NA 128 11-22 (VASUDEV): HYPONATREMIA, MUCH BETTER 11-21 (GREEN): MENTAL STATUS CHANGE OF UNCERTAIN ETIOLOGY, IT MAY BE DUE TO HYPOPERFUSION D/T DECREASED CARDIAC OUTPUT OR SHE MAY HAVE HAD A SMALL EMBOLI D/ T ALSO THE DECREASED EF. RISK FACTORS 11-22 (ARATA): NSTEMI D/T DEMAND ISCHEMIA D/T ACUTE ON CHRONIC SYSTOLIC CHF 11-22 (VASUDEV): CARDIORENAL SYNDROME; HYPONATREMIA TREATMENTS: 11-21 ECHO: EF 25-30%, MILD MR AND TR 11-21 OP NOTE: LHC (EF 25-30%) NO CAD 11-22 (ARATA): STARTED ELIQUIS 5MG BID AND ASA 81MG QD. - DC HOME WHEN SHE RECEIVES A LIFEVEST THANK YOU, ANIYAH (This form is maintained as a part of the permanent medical record) 2015 [employer]. All Rights Reserved Aniyah Santos, RN, BS [email or web address] [facility]
== END 2018-11-23 12:09 | disposition home or self-care (01) | DRG 280 ==
LOC: ERS 15:28 → ERHOLD 18:45 → OBSVTOIN 18:45 → 2SE 22:28
PROVIDERS: ADMIT Family Medicine; ATTEND Family Medicine
PROC: 4A023N7 Measurement of Cardiac Sampling and Pressure, Left Heart, Percutaneous Approach (ICD-10-PCS; principal; 2018-11-21)
PROC: B2111ZZ Fluoroscopy of Multiple Coronary Arteries using Low Osmolar Contrast (ICD-10-PCS; 2018-11-21)
PROC: B2151ZZ Fluoroscopy of Left Heart using Low Osmolar Contrast (ICD-10-PCS; 2018-11-21)
DX: I21.A1 Myocardial infarction type 2 (principal); I50.23 Acute on chronic systolic (congestive) heart failure; G93.41 Metabolic encephalopathy; E87.1 Hypo-osmolality and hyponatremia; I42.9 Cardiomyopathy, unspecified; I11.0 Hypertensive heart disease with heart failure; E78.5 Hyperlipidemia, unspecified; E87.6 Hypokalemia; Z79.899 Other long term (current) drug therapy
CPT/HCPCS: 36415; 36416; 70450; 70496; 70498; 70551; 80048; 80053; 80061; 81003; 82550; 82553; 83930; 83935; 84300; 84443; 84484; 85025; 85379; 85610; 85730; 87086; 90471; 90670; 93005; 93010; 93306; 93458; 93798; 94760; C1769; G0009; J1265; J1644; J1650; J2405; Q9966; Q9967